=== PATIENT | female | born 1980 | race Caucasian/White ===

== ENCOUNTER → 2018-01-20 | Day surgery (SDC) | payer OTHER ==
--- NOTE | 2018-01-19 21:43 | PDGENHP ---
History and Physical - Chief Complaint Right Hip Pain - History of Present Illness 1. Right~Femoroacetabular impingement (HIREN) Mixed type 2. Right femoral retrotorsion 3. ~~s/p L hip scope, rim and cam resection, labral repair with OMD in 2012 HISTORY OF PRESENT ILLNESS: Kaylenis a 37 y.o.~~~active female~who I have had the pleasure to consult on today. I have enjoyed meeting her. She~lives in [place], [place]. ~Kaylenworks as a data manager. ~She~is single; she~has no~children. ~Kaylenenjoys running, strength training. (can only do 20 mi/wk, but would like to do 30-40 mi/wk if hip were not an issue) Juana's right~hip pain started 06/2017, with no~recalled trauma or injury, and with no~previous complaints. Kaylendoes not have~a known history of hip dysplasia. Went for a run and noticed hip was sore. Presentation today is of anterior, posterior right~hip pain - deep. ~The hip does not~wake her~at night and does~click and catch on her. Sitting can be uncomfortable~for her. Kaylendoes not~report suffering from lower back pain episodes. Kaylenhas~participated in physical therapy and has not~tried other conservative measures including. She~has~received sufficient symptomatic improvement. Kaylenhas~utilized medication for pain management, including NSAID. Kaylen has used medication for several months intermittently. ~ Kaylendenies issues with the left~hip. Dr. Llanes previously did Arthroscopic Acetabular rim resection (pincer), Labral repair, (soft tissue and bony) CAM resection, Synovectomy, Capsular repair~on 01/10/13 to left hip. Kaylenunderstands that she~has a hip and pelvis problem which should be researched and wishes to get a better understanding of her~hip status, followed by an establishment of a treatment strategy, hoping she~would be able to get back to her~well being active life. History: Past medical history: ~ PastMedicalHistory Past Medical History: Diagnosis Date Anemia ferritin level 4 per pt a week ago Bone spur right great toe Endometriosis Heavy menstrual bleeding IBS (irritable bowel syndrome) takes zoloft 50 Migraine with aura has not had one since 2013 Patellar tendonitis 2012 Right PONV (postoperative nausea and vomiting) Premenstrual tension syndrome 02/23/2011 Relevant familial history: None which is relevant Past surgical history: PastSurgicalHistory Past Surgical History: Procedure Laterality Date COLONOSCOPY FOOT SURGERY Right bone spur HIP SURGERY 2013 torn labrum KNEE SURGERY Right scope POLYPECTOMY 2013 Endometrial UPPER GASTROINTESTINAL ENDOSCOPY WISDOM TOOTH EXTRACTION Kaylendescribes problematic issues with general anesthesia which includes PONV. I have reviewed, verified and agree with the past medical, surgical, family and social history. Current Medications:~has a current medication list which includes the following prescription(s): iron sucrose and sertraline. ALLERGIES:~is allergic to no known allergies. Objective: Physical Examination: Kaylenis 5~feet 5~inches tall and weighs 126~Lbs. Juana~is AAO x3; she~is well-nourished, in NAD. Skin is warm and dry. ~Breathing is non-labored. ~CV with RRR by pulse. Abdomen is soft, NTND. Currently, she~walks with a abnormal (walks with right leg externally rotated relative to left)~gait. Trendelenburg sign is negative~and proprioception is normal, both~sides. She~presents with mild~signs of joint laxity. Beightons Score: 2 She~is fit looking. ~~ Lower spine examination is negative~for sciatic or femoral nerve irritation with negative~SLR &~femoral stretch tests. Range of motion of the spine is normal~for flexion, extension, and rotations, with no~associated pain. Strength, Sensation and pulses are normal - bilaterally Ankles and knees exams are normal~and no~mal-alignment is evident. She~has left~1~cm short leg length discrepancy. Thigh circumference is symmetric~with no evidence for muscle atrophy~on both~ sides. Hip ROM (degrees): FL ER At 90~hip FL IR At 90~hip FL AB AD EX IR Neutral hip ER Neutral hip R 95 55 5 30 5 10 25 45 L 105 55 15 45 5 10 30 35 Specific hip and pelvis tests: Impingement Test TON Roll Add. Longus R +++ +++ Negative Negative L Negative Negative Negative Negative Glut. Med ITB Posterior Imp R Negative 5/5 strength Negative 5/5 strength Negative L Negative 5/5 strength Negative 5/5 strength Negative Squeeze test measured normal Bony Symphysis pubis is pain free~to touch while concentric activity of the rectus abdominis, does not~produce pain at its insertion. Ilio Psos specific tests are negative for pain during cycling for both hips~and remarkable for nothing further HF has has pain the right hip. Posterior~capsule tenderness on the right Greater trochanteric burse is pain free~on both hips. Piriformis tests: FAIR is negative, with no~local signs of neuritis related to sciatic nerve. SIJs examination is normal~with normal~TON in relation and local tenderness. Hamstrings tests are normal both hips. On a daily basis, the following percentages reflect Juana's overall total pain : Deep hip: ~70% Hip flexors: ~30% Imaging: Radiology studies which I have personally reviewed, analyzed and measured are below: XR: AP of the hip and pelvis: Performed in a good~technique Coccyx to pubic symphysis distance 2.5~cm. 5~degrees caudal [place] Lines are preserved. Minimal~Pathological signs are seen in the Symphysis Pubis. No~Pathological signs are seen at the Ischial tuberosity. ~ Specific measurements show: NSA~ LCE Sourcil~Angle Sharp's angle Lat. Cam Lat. Pincer C.Over~sign Head~Coverage % ATDmm R 132 40 -3 32 N + 1:30 95 + L 135 31 1 36 N N 1:00 91 + Pos. wall sign ISS NAD ~~Dysplasia Comments R Negative Negative 9.1~mm Negative L Negative Negative 10.8~mm Negative Sclerosis Sup. Lat. OA Cysts Joint Space-WBZ Joint Space-Medial R Negative Negative Negative 4.2~mm 3.1~mm L Negative Negative Negative 3.9~mm 3.0~mm X Table lateral: Anterior cam lesion is seen~on the right hip. Alpha Angle: ~ Right 64~dergrees Left 49~degrees CT 3d from 12/11/12- Right hip: Lateral center edge angle: 40 degrees Anterior center edge angle: 53 degrees Alpha angle: 38 degrees. Femoral head-neck offset: 8.7 mm Equatorial acetabular version angle: 17 degrees anteverted. Cranial acetabular version angle: 1.1 degrees retroverted. Femoral neck shaft angle: 127 degrees Femoral neck version angle: 13 degrees retroverted Femoral shaft torsion angle: -10~degrees Left hip: Lateral center edge angle: 40 degrees Anterior center edge angle: 57 degrees Alpha angle: 42 degrees. Femoral head-neck offset: 8.3 mm Equatorial acetabular version angle: 20 degrees anteverted. Cranial acetabular version angle: 2 degrees retroverted. Femoral neck shaft angle: 129 degrees Femoral neck version angle: 8 degrees anteverted Femoral shaft torsion angle: +6~degrees Impression and plan: Juana~is a 37 y.o.~active female~suffering from symptomatic Right~hip pain due to Right~Femoroacetabular impingement (HIREN) Mixed type and right femoral retrotorsion~causing significant disability to her~and altering her~sport and life activities. Physical examination, imaging, and her~story correspond with the diagnosis mentioned above. I explained that femoroacetabular impingement (HIREN) arises due to a bony or soft tissue conflict between the femur (ball) and acetabulum (socket) caused by an abnormality in the shape of the hip joint. Over time, repetitive impingement can result in damage to the labrum and adjacent surface cartilage within the socket, ultimately giving rise to progressive osteoarthritis of the hip. I explained that although a labral tear can be a source of pain, it is rarely the root of the problem and typically occurs secondary to an underlying abnormality in the shape and mechanics of the hip joint. ~ I reviewed conservative treatment options for HIREN including activity modification to avoid positions of impingement, physical therapy, non-steroidal anti-inflammatory medications, and various injections (corticosteroid and PRP) aimed at reducing inflammation in the hip joint or/and preventing dynamic impingement. PRP injections may promote healing and reduce symptoms in certain cases but it will not repair chronically damaged tissue. Although these measures may help to buy time and reduce current level of symptoms, they are not a definitive solution to the problem given the underlying abnormality in the shape of the hip joint. Patients who have failed conservative management and continue to experience symptoms are candidates for hip arthroscopy, a minimally invasive surgery that can definitively address the underlying problem. Hip arthroscopy typically includes treating the labrum with either repair or reconstruction of the torn labrum; as well as addressing the underlying abnormalities by restoring the normal shape to the hip joint. ~If the cartilage is damaged a Microfracture~ surgical procedure may also be necessary to help stimulate the growth of fibrocartilage. ~If a patient requires a labral reconstruction or a Microfracture, the initial rehabilitation from the surgery may take longer, but the high school agriculture teacher results are typically favorable. We do not believe her femoral retrotorsion is significant enough to warrant a DFO at this; it will likely be amenable to arthroscopic management as we will take it into consideration during our cam resection and dynamic impingement testing during surgery. Juana~will review the info presented. In order to better evaluate the soft tissues and cartilage of the hip joint, I will order an MRI scan. Patient can call to schedule surgery at her convenience, just need MRI performed before OR. Juana~is happy with this plan. I have also supplied her~with handouts, outlining the expected surgical treatment and rehab involved. I wish~Kaylenall the best, ~~ Pam Buitrago MD History Information - Allergies/Home Medication List Allergies/Adverse Reactions: No Known Allergies Allergy (Verified 01/12/18 16:42) Home Medications: Digestive Enzymes 01/12/18 [Last Taken Unknown] Digestive Probiotic 01/12/18 [Last Taken Unknown] Herbals/Supplements -Info Only 01/12/18 [Last Taken Unknown] Iron 01/12/18 [Last Taken Unknown] I have personally reviewed and updated: medical history - Social History Smoking Status: Never smoked Review of Systems Review of Systems: Physical Exam Physical Exam:
[~2018-01-20] MED LIST: ACETAMINOPHEN 500 MG TAB PO ONE; ALBUTEROL 3 ML DEYVIAL IH PRN; BUPIVACAINE 0.25% 30 ML SDV ONE; DEXAMETHASONE 4 MG/ML VIAL ONE; EPINEPHrine 30 MG/30 ML MDV (0.1 MG/0.1 ML) ONE; KETOROLAC 30 MG/1 ML SDV ONE; LIDOCAINE 1% 2 ML INJ ID PRN; LIDOCAINE 2% 5 ML SDV ONE; LR 1,000 ML IV ONE; LR 500 ML IV PRN; MIDAZOLAM 2 MG/2 ML VIAL IVP ONE; NALOXONE HCL 0.4 MG/ML INJ IVP PRN; ONDANSETRON 4 MG/2 ML VIAL ONE; PREGABALIN 150 MG CAP PO ONE; PROMETHAZINE HCL 25 MG/ML INJ IVP PRN; PROPOFOL/EMULSION 500 MG/50 ML BOTTLE IV ONE; SCOPOLAMINE HYDROBROMIDE 1 MG/3 DAYS PATCH TD ONE; ceFAZolin 2 GM/DEXTROSE 100 ML IV ONE; fentaNYL 100 MCG/2 ML INJ IVP PRN; fentaNYL 100 MCG/2 ML INJ ONE; oxyCODONE IR 5 MG TAB PO PRN
--- NOTE | 2018-01-20 10:43 | POSTANESTH ---
Post Anesthetic Evaluation Cardiovascular Status: Normal, Stable Respiratory Status: Normal, Stable, Requires Airway Assist (Nasal airway alleviates obstruction.) Level of Consciousness/Mental Status: Unconscious Pain Control: Adequate, Prn Tx Ordered Nausea/Vomiting Control: Adequate, Prn Tx Ordered Complications Possibly Related to Anesthesia: None Noted
--- NOTE | 2018-01-20 10:45 | PDANEPAE ---
ANE History of Present Illness 37 yo female for R hip scope. ANE Past Medical History - Cardiovascular History Hx Hypertension: No Hx Arrhythmias: No Hx Chest Pain: No Hx Coronary Artery / Peripheral Vascular Disease: No Hx CHF / Valvular Disease: No Hx Palpitations: No - Pulmonary History Hx COPD: No Hx Asthma/Reactive Airway Disease: No Hx Recent Upper Respiratory Infection: No Hx Oxygen in Use at Home: No Hx Sleep Apnea: No Sleep Apnea Screening Result - Last Documented: Negative - Neurologic History Hx Cerebrovascular Accident: No Hx Seizures: No Hx Dementia: No - Endocrine History Hx Diabetes: No Hypothyroid: No Obesity: no - Renal History Hx Renal Disorders: No - Liver History Hx Hepatic Disorders: No - Neurological & Psychiatric Hx Hx Neurological and Psychiatric Disorders: No - Cancer History Hx Cancer: No - Congenital Disorder History Hx Congenital Disorders: No - GI History Hx Gastrointestinal Disorders: Yes Gastrointestinal History Comment: IBS lower GI bloating cramping - Other Health History Other Health History: low ferritin after mentrual period - Chronic Pain History Chronic Pain: No - Surgical History Prior Surgeries: 2012 left hip scope. 2013 right knee scope. 2014 right foot bone spur removed. 2016 diagnostic lap. 2017 endometriosis excision & appy. 2018 lasik ANE Review of Systems Review of systems is: negative Review of Systems: - Exercise capacity METS (RN): 6 METS ANE Patient History - Allergies Allergies/Adverse Reactions: No Known Allergies Allergy (Verified 01/12/18 16:42) - Home Medications Home Medications: Digestive Enzymes 01/12/18 [Last Taken 01/14/18] Digestive Probiotic 01/12/18 [Last Taken 01/14/18] Herbals/Supplements -Info Only 01/12/18 [Last Taken 01/19/18] Iron 01/12/18 [Last Taken 01/14/18] - NPO status NPO Since - Liquids (Date): 01/20/18 NPO Since - Liquids (Time): 05:00 NPO Since - Solids (Date): 01/19/18 NPO Since - Solids (Time): 22:00 - Anes Hx Anes Hx: post operative nausea and vomiting - Smoking Hx Smoking Status: Never smoked Marijuana use: Yes - Alcohol Use Alcohol Use: None - Family Anes Hx Family Anes Hx: neg - N/A Family Hx Anesthesia Complications: NONE ANE Labs/Vital Signs - Vital Signs Blood Pressure: 112/69 Heart Rate: 70 Respiratory Rate: 15 O2 Sat (%): 99 Height: 165.1 cm Weight: 56.699 kg ANE Physical Exam - Airway Neck exam: FROM Mallampati Score: Class 2 Mouth exam: normal dental/mouth exam - Pulmonary Pulmonary: clear to auscultation - Cardiovascular Cardiovascular: regular rate and rhythym - ASA Status ASA Status: II ANE Anesthesia Plan Anesthesia Plan: GA w LMA (Pt requests 1/2 TIVA)
[2018-01-20 16:40] VITALS: BP 106/58
== END | disposition home or self-care (01) ==
LOC: FSGY 08:08
PROVIDERS: ATTEND Orthopaedic Surgery Sports Medicine
PROC: 0SQ94ZZ Repair Right Hip Joint, Percutaneous Endoscopic Approach (ICD-10-PCS; principal; 2018-01-20 10:15)
PROC: 0SB94ZZ Excision of Right Hip Joint, Percutaneous Endoscopic Approach (ICD-10-PCS; principal; 2018-01-20 10:15)
PROC: BQ101ZZ Fluoroscopy of Right Hip using Low Osmolar Contrast (ICD-10-PCS; principal; 2018-01-20 10:15)
DX: M25.851 Other specified joint disorders, right hip (principal); Q65.89 Other specified congenital deformities of hip; M65.88 Other synovitis and tenosynovitis, other site; D64.9 Anemia, unspecified; K58.9 Irritable bowel syndrome, unspecified; G43.909 Migraine, unspecified, not intractable, without status migrainosus
CPT/HCPCS: C1713; J0171; J0690; J1100; J1885; J2250; J2405; J2704; J3010